=== PATIENT | male | born 1955 | race Caucasian/White ===

== ENCOUNTER → 2024-06-02 | Outpatient (CLI) | payer MEDICARE, BC, SELFPAY | END | disposition home or self-care (01) | LOC: SWHD 13:36 | PROVIDERS: PCP Family Medicine; Referring Provider Family Medicine; Visit Provider Surgery | DX: T81.89XA Other complications of procedures, not elsewhere classified, initial encounter (principal); Y84.2 Radiological procedure and radiotherapy as the cause of abnormal reaction of the patient, or of later complication, without mention of misadventure at the time of the procedure; D64.9 Anemia, unspecified; M17.0 Bilateral primary osteoarthritis of knee; R56.9 Unspecified convulsions; Z92.21 Personal history of antineoplastic chemotherapy | CPT/HCPCS: 99213; G0463 ==

== ENCOUNTER → 2024-07-21 | Outpatient (CLI) | payer MEDICARE, BC, SELFPAY | END | disposition home or self-care (01) | PROVIDERS: PCP Family Medicine; Referring Provider Family Medicine; Visit Provider Student in an Organized Health Care Education/Training Program | DX: T81.89XD Other complications of procedures, not elsewhere classified, subsequent encounter (principal); D64.9 Anemia, unspecified; M17.0 Bilateral primary osteoarthritis of knee; R56.9 Unspecified convulsions; Z92.21 Personal history of antineoplastic chemotherapy | CPT/HCPCS: 97597; 36415; 82040; 84134 ==

== ENCOUNTER → 2024-07-28 | Outpatient (CLI) | payer MEDICARE, BC, SELFPAY | END | disposition home or self-care (01) | LOC: SWHD 13:32 | PROVIDERS: PCP Family Medicine; Referring Provider Family Medicine; Visit Provider Student in an Organized Health Care Education/Training Program | DX: T81.89XD Other complications of procedures, not elsewhere classified, subsequent encounter (principal); D64.9 Anemia, unspecified; M17.0 Bilateral primary osteoarthritis of knee; R56.9 Unspecified convulsions; Z92.21 Personal history of antineoplastic chemotherapy | CPT/HCPCS: 97597 ==

== ENCOUNTER 2024-08-05 14:33 | Outpatient (RCR) | payer MEDICARE, BC, SELFPAY ==
--- NOTE | 2024-08-05 16:10 | CTCFLWUP_ITS ---
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 Patient underwent surgery for grade 2 meningioma [facility] May 15, 2013. Received postop radiation 6000 cGy via VMAT completed 08/05/2023. Has a several episodes of seizures leading to surgery performed at [facility] in December having had apparent in fection being scraped from prior surgical site along with additional tumor removed. Being followed by neurologist in [place] who is adjusting his seizure problem which has become chronic including 1 a week ago. Keppra and 1 additional drug. Also has plastic surgeon that we will care f or his wound. As I see patient today slight weakness in the left lower extremity with the wound not completely heal ed in the scalp which is covered with Band-Aid. MRI reportedly unremarkable in July. I will see patient again in 3 months time. Electronically signed by: Perry Rodrigues M.D. 08/05/2024 4:08 PM
== END 2024-09-01 23:59 | disposition home or self-care (01) ==
LOC: SCTC 14:33
PROVIDERS: PCP Family Medicine; Referring Provider Family Medicine; Visit Provider Radiology Therapeutic Radiology
DX: C71.1 Malignant neoplasm of frontal lobe (principal); R53.1 Weakness; Z92.3 Personal history of irradiation
CPT/HCPCS: 99213; G0463

== ENCOUNTER → 2024-08-11 | Outpatient (CLI) | payer MEDICARE, BC, SELFPAY | END | disposition home or self-care (01) | LOC: SWHD 13:31 | PROVIDERS: PCP Family Medicine; Referring Provider Family Medicine; Visit Provider Surgery | DX: T81.89XD Other complications of procedures, not elsewhere classified, subsequent encounter (principal); D64.9 Anemia, unspecified; R56.9 Unspecified convulsions; Z92.21 Personal history of antineoplastic chemotherapy | CPT/HCPCS: 99213; G0463 ==

== ENCOUNTER 2024-08-17 10:55 | Day surgery (SDC) | payer MEDICARE, BC, SELFPAY ==
[2024-08-14 15:53] VITALS: BMI 24.3
[2024-08-17 11:48] VITALS: BP 134/89; PULSE 83; RESP 13; TEMP 36.7; O2SAT 93; BMI 24.7
[2024-08-17] MEDS: SODIUM CHLORIDE 0.9% 500 ML 500 ML 20 ML IV (13:30)
[2024-08-17 13:51] VITALS: BP 137/82; PULSE 73; RESP 16; TEMP 36.8; O2SAT 94
[2024-08-17 14:00] VITALS: BP 125/79; PULSE 61; RESP 14; TEMP 36.8; O2SAT 94
[2024-08-17 14:05] VITALS: BP 122/80; PULSE 75; RESP 15; TEMP 36.6; O2SAT 95
[2024-08-17 14:10] VITALS: BP 117/76; PULSE 65; RESP 20; TEMP 36.5; O2SAT 95
[2024-08-17 14:25] VITALS: BP 140/89; PULSE 68; RESP 18; TEMP 36.5; O2SAT 95
--- NOTE | 2024-08-17 14:50 | SUR.PHASEII ---
pt awake and alert, breathing unlabored on room air. v/s stable. pt able to ambulate to wheelchair with steady gait. d/c instructions given with in room, all questions answered. pt d/c via wheelchair with all belongings.
== END 2024-08-17 14:50 | disposition home or self-care (01) ==
PROVIDERS: PCP Family Medicine; Referring Provider Specialist; Visit Provider Specialist
PROC: 0DBE8ZX Excision of Large Intestine, Via Natural or Artificial Opening Endoscopic, Diagnostic (ICD-10-PCS; CPT 45380; principal; 2024-08-17 10:30)
DX: K64.9 Unspecified hemorrhoids (principal); K57.31 Diverticulosis of large intestine without perforation or abscess with bleeding
CPT/HCPCS: 45378; 80053; J7040

== ENCOUNTER → 2024-08-20 | Outpatient (CLI) | payer MEDICARE, BC, SELFPAY | END | disposition home or self-care (01) | LOC: SWHD 13:32 | PROVIDERS: PCP Family Medicine; Referring Provider Family Medicine; Visit Provider Student in an Organized Health Care Education/Training Program | DX: T81.89XD Other complications of procedures, not elsewhere classified, subsequent encounter (principal); D64.9 Anemia, unspecified; R56.9 Unspecified convulsions; Z92.21 Personal history of antineoplastic chemotherapy | CPT/HCPCS: 99213; A9270; G0463 ==

== ENCOUNTER → 2024-08-27 | Outpatient (CLI) | payer MEDICARE, BC, SELFPAY ==
[2024-08-27 13:59] LABS: Basophils % (Auto) 0 % (0-2.5); Eosinophils # (Auto) 0.4 Thou/mm3 (0.0-0.5); Eosinophils % (Auto) 6 % (0-10); Hemoglobin 14.7 g/dL (13.5-16.0); Immature Granulocytes % (Auto) 0 % (0-0); Immature Granulocytes Auto 0.02 Thou/mm3 (0.00-0.00); Lymphocytes # (Auto) 1.8 Thou/mm3 (1.0-4.8); Lymphocytes % (Auto) 25 % (10-50); Mean Corpuscular Hemoglobin 31.5 pg (25.0-35.0); Mean Corpuscular Volume 90 fL (80-100); Monocytes # (Auto) 0.7 Thou/mm3 (0.0-0.8); Monocytes % (Auto) 10 % (0-12); Neutrophils # (Auto) 4.1 Thou/mm3 (1.8-7.7); Neutrophils % (Auto) 58 % (37-80); Nucleated Red Blood Cell % 0 /100 WBC (0); Platelet Count 195 Thou/mm3 (140-440); RDW Standard Deviation 39.8 fL (35.1-43.9); Red Blood Count 4.66 Miln/mm3 (4.50-5.90)
[2024-08-27 14:06] LABS: Partial Thromboplastin Time 28.4 Seconds (22.0-36.0); Prothrombin Time 10.9 Seconds (9.0-12.2)
[2024-08-27 14:21] LABS: Anion Gap 7 (7-16); BUN/Creatinine Ratio 25 Ratio (12-20); Blood Urea Nitrogen 25 mg/dL (9-23); Calcium 9.5 mg/dL (8.3-10.6); Chloride 105 mMol/L (98-107); Glucose 87 mg/dL (74-106); Osmolality,Calculated 282 (275-295); Potassium 3.9 mMol/L (3.4-5.1); Sodium 140 mMol/L (136-145); eGFR > 60 See Note
== END | disposition home or self-care (01) ==
PROVIDERS: PCP Family Medicine; Referring Provider Neurological Surgery; Visit Provider Neurological Surgery
DX: T81.30XA Disruption of wound, unspecified, initial encounter (principal)
CPT/HCPCS: 36415; 80048; 85025; 85610; 85730

== ENCOUNTER → 2024-09-08 | Outpatient (CLI) | payer MEDICARE, BC, SELFPAY ==
[2024-09-16 08:50] LABS: PSA, Free 3.14 ng/mL; PSA, Total 25.9 ng/mL (< OR = 4.0)
== END | disposition home or self-care (01) ==
PROVIDERS: PCP Family Medicine; Referring Provider Urology; Visit Provider Urology
DX: N40.1 Benign prostatic hyperplasia with lower urinary tract symptoms (principal)
CPT/HCPCS: 36415; 84153; 84154

== ENCOUNTER → 2024-09-18 | Outpatient (BNVA) | payer MEDICARE, BC, SELFPAY | END | disposition home or self-care (01) | PROVIDERS: PCP Family Medicine; Referring Provider Family Medicine; Visit Provider Urology | DX: N40.1 Benign prostatic hyperplasia with lower urinary tract symptoms (principal); N13.8 Other obstructive and reflux uropathy; R97.20 Elevated prostate specific antigen [PSA]; R56.9 Unspecified convulsions; D32.0 Benign neoplasm of cerebral meninges | CPT/HCPCS: 81003; 99212; G0463 ==

== ENCOUNTER → 2024-10-01 | Outpatient (CLI) | payer MEDICARE, BC, SELFPAY | END | disposition home or self-care (01) | LOC: SWHD 15:03 | PROVIDERS: PCP Family Medicine; Referring Provider Family Medicine; Visit Provider Student in an Organized Health Care Education/Training Program | DX: T81.89XA Other complications of procedures, not elsewhere classified, initial encounter (principal); D64.9 Anemia, unspecified; I10 Essential (primary) hypertension; J44.9 Chronic obstructive pulmonary disease, unspecified; J98.4 Other disorders of lung | CPT/HCPCS: 99213; G0463 ==

== ENCOUNTER 2024-11-03 14:17 | Outpatient (RCR) | payer MEDICARE, BC, SELFPAY ==
--- NOTE | 2024-11-03 15:11 | CTCFLWUP_ITS ---
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 Patient underwent surgery for grade 2 meningioma [facility] May 15, 2013. Postop radiation 6000 cGy via VMAT completed 08/05/2023. Several episodes seizures dental surgery performed at [facility] in December having had apparent infection being scraped from prior surgical site along with additional tumor removed. Being followed by neurologist in [place] who is adjusting his seizure problem which had become chronic. Now only needing Keppra 1000 mg twice daily. No recent seizures. Had wound on scalp which had been cleaned and worked up on by plastic surgeon. The area looked clean without any sign of inflammation or infection. Patient is able to walk with some weakness but without needing assistive support. Patient doing quite well for the time being being followed by other specialists and I will see him again in 6 months. Electronically signed by: Perry Rodrigues M.D. 11/03/2024 3:09 PM
== END 2024-11-30 23:59 | disposition home or self-care (01) ==
LOC: SCTC 14:17
PROVIDERS: PCP Family Medicine; Referring Provider Family Medicine; Visit Provider Radiology Therapeutic Radiology
DX: C71.1 Malignant neoplasm of frontal lobe (principal); Z92.3 Personal history of irradiation; Z79.899 Other long term (current) drug therapy
CPT/HCPCS: 99213; G0463

== ENCOUNTER → 2024-11-05 | Outpatient (CLI) | payer MEDICARE, BC, SELFPAY | END | disposition home or self-care (01) | PROVIDERS: PCP Family Medicine; Referring Provider Family Medicine; Visit Provider Student in an Organized Health Care Education/Training Program | DX: T81.89XA Other complications of procedures, not elsewhere classified, initial encounter (principal); D64.9 Anemia, unspecified; I10 Essential (primary) hypertension; J44.9 Chronic obstructive pulmonary disease, unspecified; J98.4 Other disorders of lung; Z92.3 Personal history of irradiation | CPT/HCPCS: 99212; G0463 ==

== ENCOUNTER → 2024-12-03 | Outpatient (CLI) | payer MEDICARE, BC, SELFPAY ==
[2024-12-08 22:05] LABS: PSA, Free 3.75 ng/mL
== END | disposition home or self-care (01) ==
PROVIDERS: PCP Urology; Referring Provider Urology; Visit Provider Urology
DX: N40.1 Benign prostatic hyperplasia with lower urinary tract symptoms (principal)
CPT/HCPCS: 36415; 84153; 84154

== ENCOUNTER → 2024-12-22 | Outpatient (BNVA) | payer MEDICARE, BC, SELFPAY | END | disposition home or self-care (01) | PROVIDERS: PCP Family Medicine; Referring Provider Family Medicine; Visit Provider Urology | DX: N40.1 Benign prostatic hyperplasia with lower urinary tract symptoms (principal); N13.8 Other obstructive and reflux uropathy; R97.20 Elevated prostate specific antigen [PSA]; G40.909 Epilepsy, unspecified, not intractable, without status epilepticus; D32.9 Benign neoplasm of meninges, unspecified; Z92.3 Personal history of irradiation | CPT/HCPCS: 99212; G0463 ==

== ENCOUNTER → 2025-03-12 | Outpatient (BNVA) | payer MEDICARE, BC, SELFPAY | END | disposition home or self-care (01) | PROVIDERS: PCP Family Medicine; Referring Provider Family Medicine; Visit Provider Urology | DX: N40.0 Benign prostatic hyperplasia without lower urinary tract symptoms (principal); R97.20 Elevated prostate specific antigen [PSA]; Z85.841 Personal history of malignant neoplasm of brain; Z92.3 Personal history of irradiation | CPT/HCPCS: 99212; G0463 ==

== ENCOUNTER 2025-05-11 13:04 | Outpatient (RCR) | payer MEDICARE, BC, SELFPAY ==
--- NOTE | 2025-05-11 13:48 | CTCFLWUP_ITS ---
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 Surgery for grade 2 meningioma at [facility] May 15, 2023. Postop radiation 6000 cGy VMAT completed 08/05/2023. Several episode of the seizures additional surgery performed [facility] in December having had apparent infection described from prior surgical site along with additional tumor removed. Being followed by neurologist in [place] who is adjusting his seizure problem which had become chronic. After adding an additional med in addition to Keppra his seizures have become a rare occurrence. Awaiting cranioplasty to correct surgical defect which was exacerbated by infection. Also being followed by urology for elevated PSA for possible workup including biopsy Patient getting PT and OT as well. Patient seen today patient appears well. The craniotomy scar after the removal of the helmet appears to be clean and dry noninfected. Patient has some weakness left greater than right but able to care for his daily needs. I will see him again in 6 months time. Electronically signed by: Perry Rodrigues M.D. 05/11/2025 1:46 PM
== END 2025-06-01 23:59 | disposition home or self-care (01) ==
LOC: SCTC 13:04
PROVIDERS: PCP Family Medicine; Referring Provider Family Medicine; Visit Provider Radiology Therapeutic Radiology
DX: C71.1 Malignant neoplasm of frontal lobe (principal); Z92.3 Personal history of irradiation; R53.1 Weakness; R97.20 Elevated prostate specific antigen [PSA]
CPT/HCPCS: 99213; G0463